=== PATIENT | female | born 2005 | race Caucasian/White ===

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

== ENCOUNTER 2023-06-20 10:18 | Outpatient (CLI) | payer OTHER, SELFPAY ==
[2023-06-20 21:31] LABS: T4 Thyroxine 8.92 ug/dL (5.53-11.0)
== END 2023-06-20 10:19 | disposition home or self-care (01) ==
LOC: ANHASCLAB 10:20
PROVIDERS: PCP Pediatrics; Visit Provider Pediatrics Pediatric Endocrinology
DX: E05.00 Thyrotoxicosis with diffuse goiter without thyrotoxic crisis or storm (principal)
CPT/HCPCS: 36415; 84436; 84443